=== PATIENT | female | born 1935 | race Hispanic/Latino ===

== ENCOUNTER 2019-01-08 11:16 | Day surgery (SDC) | payer MEDICARE ==
[~2019-01-08 11:16] MED LIST: ANCEF/STERILE WATER 2 GM/20 ML 2 GM/20 ML SYRINGE IV NR; LACTATED RINGERS 1,000 ML IV SCH
--- NOTE | 2019-01-08 12:12 | Anesthesia Consultation ---
Anesthesia Consult and Med Hx - Airway Anesthetic Teeth Evaluation: Poor ROM Head & Neck: Adequate Mental/Hyoid Distance: Adequate Mallampati Class: Class II - Pulmonary Exam CTA: Yes - Cardiac Exam Cardiac Exam: RRR - Pre-Operative Health Status ASA Pre-Surgery Classification: ASA3 Proposed Anesthetic Plan: General (Patient with complicated cardiac hx HTN, CHF, PHTN, AFIb , AICD , D/W cardiology , patient asymptomatic at present , will place magnet over AICD and patient will follow up with cardilogy in one to two weeks) - Pulmonary Hx Smoking: Yes (Former) COPD: Yes - Cardiovascular System Hx Hypertension: Yes (Until right adrenalectomy, now hypotensive) Hx Pacemaker: Yes Hx Internal Defibrillator: Yes - Central Nervous System Hx Psychiatric Problems: Yes - Endocrine Hx Renal Disease: Yes Hx End Stage Renal Disease: Yes - Hematic Hx Anemia: Yes - Other Systems Hx Alcohol Use: Yes (Daily) Hx Cancer: Yes
--- NOTE | 2019-01-08 12:12 | Anesthesia Day of Surgery ---
Anesthesia Day of Surgery - Day of Surgery Patient Examined: Yes Patient H&P Reviewed: Yes Patient is NPO: Yes
[2019-01-08] MEDS ORDERED: ZOFRAN IV NR (13:00)
[2019-01-08] MEDS ORDERED: MARCAINE-EPI 0.5%-1:200,000 INFILTRATI ONE ×2 (13:59→14:41)
[2019-01-08] MEDS ORDERED: NACL 0.9% 500 ML 500 ML ONE (14:00)
[2019-01-08] MEDS ORDERED: HEPARIN 10,000 UNITS/10 ML ONE (14:00)
[2019-01-08] MEDS ORDERED: XYLOCAINE MPF 2% ONE (14:14)
[2019-01-08] MEDS ORDERED: DIPRIVAN 10 MG/ML IV ONE (14:14)
[2019-01-08] MEDS ORDERED: SUBLIMAZE ONE (14:14)
[2019-01-08] MEDS ORDERED: AMIDATE IV ONE (14:58)
[2019-01-08] MEDS ORDERED: NEO SYNEPHRINE/NS Syringe(OR USE) IV ONE (15:09)
[2019-01-08] MEDS ORDERED: NEO SYNEPHRINE ONE (15:09)
[2019-01-08] MEDS ORDERED: NACL 0.9% 500 ML IRRIGATION ONE (15:15)
[2019-01-08] MEDS ORDERED: HEPARIN 10,000 UNITS/10 ML IV ONE (15:15)
[2019-01-08] MEDS ORDERED: OMNIPAQUE (240mg) IV ONE (15:54)
--- NOTE | 2019-01-08 16:19 | Short Stay Summary ---
Short Stay Documentation Date of service: 01/08/19 - History H&P: obtained from office - Allergies and Medications Current Medications: Allergies oxycodone HCl [From Percocet] Allergy (Verified 01/07/19 17:53) Itching acetaminophen [From Percocet] Adverse Reaction (Verified 01/07/19 17:53) Itching codeine Adverse Reaction (Verified 01/07/19 17:53) Vomiting diatrizoate meglumine [From Gastrografin] Adverse Reaction (Verified 01/07/19 17:53) Nausea VOMITING diatrizoate sodium [From Gastrografin] Adverse Reaction (Verified 01/07/19 17:53) Nausea VOMITING lorazepam [From Ativan] Adverse Reaction (Verified 01/07/19 17:53) Dizziness Home Medications Medication Instructions Recorded Confirmed Last Taken Type Clopidogrel Bisulfate [Plavix] 75 mg PO DAILY 07/29/13 01/07/19 01/07/19 09:00 History Escitalopram Oxalate [Lexapro] 1 tab PO DAILY 07/29/13 01/07/19 01/07/19 09:00 History Ranitidine HCl [Zantac] 150 tab PO QHS 07/29/13 01/07/19 01/07/19 21:00 History Acetaminophen [Tylenol Extra 500 mg PO Q6H PRN 04/20/18 01/07/19 Unknown History Strength] Ascorbic Acid [Vitamin C] 500 mg PO QDAY 04/20/18 01/07/19 01/07/19 21:00 History Atorvastatin Calcium [Lipitor] 20 mg PO QHS 04/20/18 01/07/19 01/07/19 21:00 History Ellura 1 tab PO QDAY 04/20/18 01/07/19 01/07/19 09:00 History Omeprazole Magnesium [PriLOSEC Otc] 40 mg PO DAILY 04/20/18 01/07/19 01/08/19 05:30 History Metoprolol [Lopressor] 25 mg PO BID 01/07/19 01/07/19 01/07/19 21:00 History Vit B Complx C/Folic Acid/Zinc 0.8 mg PO DAILY 01/07/19 01/07/19 01/07/19 09:00 History [Dialyvite 800-Zinc 15 Tab] Active Medications Cefazolin Sodium (Ancef/Sterile Water 2 Gm/20 Ml) 2 gm in 20 mls @ 80 mls/hr IV PREOP NR; Protocol Stop: 01/08/19 18:00 Lactated Ringer's (Lactated Ringers) 1,000 mls @ 75 mls/hr IV DIRECT BEL Last Admin: 01/08/19 12:40 Dose: 75 mls/hr Documented by: Ondansetron HCl (Zofran) 4 mg IV PREOP NR Stop: 01/08/19 23:00 Last Admin: 01/08/19 12:53 Dose: 4 mg Documented by: - Brief post op/procedure progress note Date of procedure: 01/08/19 Pre-op diagnosis: thrombosed right arm AVG Post-op diagnosis: same Procedure: open and percutaenous thrombectomy of right arm avg Anesthesia: GETA, local Findings: good thrill, 2+ radial right at end of procedure Surgeon: DEENA RODRIGES Estimated blood loss: other (300 ml) Pathology: none Condition: stable - Hospital course Hospital course: benign - Disposition Condition at discharge: Good Short Stay Discharge Plan Activity: advance as tolerated Diet: advance as tolerated Wound: per your surgeon's advice Follow up with: DEENA RODRIGES MD [Staff Physician] - 7 Days
[2019-01-08 17:47] VITALS: BP 147/68
--- NOTE | 2019-01-11 08:27 | Operative Report ---
Operative Report Operative Report: OPEN THROMBECTOMY RIGHT ARM AVG DATE OF PROCEDURE: 01/08/2019 PREOPERATIVE DX: Thrombosed right arm AVG POSTOPERATIVE DX: Same PROCEDURE: * Open thrombectomy of right arm AVG * Bovine patch to venous outflow * Fluoroscopic guidance for thrombectomy w imaging SURGEON: Omer Starkey MD [facility] [employer] INSPECTOR: None ANESTHESIA: Gen w local supplementation EBL: Less than 100 ml OPERATIVE INDICATION: Patient is an 83 yo woman with a thrombosed right arm AVG. OPERATIVE FINDINGS: Excellent flow in the graft at the end of the procedure. 2+ right radial pulse. OPERATIVE DESCRIPTION: The patient was placed on the table in the supine position. She was given appropriate anesthesia. The area over the right arm was prepped with Chloraprep solution and draped in the usual sterile fashion. Half percent marcaine with epinephrine was used for local anesthesia. The area around the right axilla was anaesthetized. A linear incision was made along the medial side of the axilla. Dissection was carried out to identify the venous end of the existing graft. Vessel loops were used to occlude the venous outflow proximally and distally. The patient was given 2000 units of intravenous heparin and 3 minutes were allowed to pass. The graft was opened over the Venous anastomosis in a longitudinal fashion. There was near complete occlusion of the Venous outflow proximally. Thrombus was removed from the area. There was now a Patent channel from the graft into the Venous outflow. There was good Venous back bleeding from the axillary vein. A series of Alayna catheters were used to remove thrombus from the body of the graft. There appeared to be some difficulty getting the arterial side cleared. I eventually brought the fluoroscopy onto the field and noted that there was a persistent stenosis on the arterial side of the graft. This would be consistent with the banding that was done at the original surgery. Other than that, the graft was widely Patent. there was excellent arterial inflow. A bovine Patch was tailored appropriately and so and into place over the Venous anastomosis using running 6-0 Prolene. All vessels were flushed and vented to remove any air or debris. The Patch was completed. Flow was started back into the graft with the development of an immediate and excellent thrill over the body of the graft. Meticulous hemostasis was achieved. Closure was done with 3-0 Vicryl and 4-0 subcuticular Monocryl. Sterile dressings were applied. The patient tolerated the procedure well. Sponge, needle, and instrument counts were reported as correct. The patient was taken from the operating room to the recovery room in stable condition with an easily palpable thrill in the graft and an easily palpable right radial pulse.
== END 2019-01-08 17:30 | disposition home or self-care (01) ==
LOC: OR 11:16
PROVIDERS: ATTEND Surgery Vascular Surgery
DX: T82.868A Thrombosis due to vascular prosthetic devices, implants and grafts, initial encounter (principal); I13.2 Hypertensive heart and chronic kidney disease with heart failure and with stage 5 chronic kidney disease, or end stage renal disease; N18.6 End stage renal disease; I50.9 Heart failure, unspecified; I25.10 Atherosclerotic heart disease of native coronary artery without angina pectoris; E78.00 Pure hypercholesterolemia, unspecified; J44.9 Chronic obstructive pulmonary disease, unspecified; K21.9 Gastro-esophageal reflux disease without esophagitis; M19.90 Unspecified osteoarthritis, unspecified site; F32.9 Major depressive disorder, single episode, unspecified; F41.9 Anxiety disorder, unspecified; Z85.118 Personal history of other malignant neoplasm of bronchus and lung; Z90.49 Acquired absence of other specified parts of digestive tract; Z88.5 Allergy status to narcotic agent; Z88.8 Allergy status to other drugs, medicaments and biological substances; Z79.899 Other long term (current) drug therapy; Z87.891 Personal history of nicotine dependence; Z98.41 Cataract extraction status, right eye; Z98.42 Cataract extraction status, left eye; Z85.43 Personal history of malignant neoplasm of ovary; Z90.710 Acquired absence of both cervix and uterus; Z98.890 Other specified postprocedural states; Z87.440 Personal history of urinary (tract) infections; Z86.73 Personal history of transient ischemic attack (TIA), and cerebral infarction without residual deficits; Z86.2 Personal history of diseases of the blood and blood-forming organs and certain disorders involving the immune mechanism; Y83.8 Other surgical procedures as the cause of abnormal reaction of the patient, or of later complication, without mention of misadventure at the time of the procedure; Y92.89 Other specified places as the place of occurrence of the external cause
CPT/HCPCS: 36415; 36831; 82803; 84132; C1757; C1768; C1769; C1894; J0690; J1644; J2370; J2405; J2704; J3010; J7040; J7120; Q9966